=== PATIENT | female | born 1960 | race Caucasian/White ===

== ENCOUNTER 2022-07-30 07:50 | Outpatient (CLI) | payer OTHER, SELFPAY ==
--- NOTE | 2022-07-30 09:24 | ECG_ITS ---
Measurements Intervals [place] Rate: 59 P: 28 KS: 166 QRS: 13 QRSD: 83 T: 21 QT: 408 QTc: 407 Interpretive Statements SINUS BRADYCARDIA BORDERLINE T WAVE ABNORMALITY- ANTERIOR LEADS BASELINE ARTIFACT- I, II, III, AVR, AVL, AVF BORDERLINE ECG NO PREVIOUS ECG AVAILABLE FOR COMPARISON Electronically Signed On 07-30-2022 10:02:48 CDT by Patel Garnica D.O.
[2022-07-30 09:48] LABS: Basophils Percent Auto 0.2 % (0.2-1.2); Eosinophils Absolute Auto 0.1 K/mm3 (0-0.3); Eosinophils Percent Auto 1.5 % (0-4.4); Hematocrit 42.2 % (37.0-47.0); Hemoglobin 14.1 g/dL (12.0-15.0); Immature Granulocyte Absolute 0.01 K/mm3 (0.00-0.031); Immature Granulocyte Percent A 0.2 % (0-0.5); Lymphocytes Absolute Auto 1.28 K/mm3 (0.9-3.2); Lymphocytes Percent Auto 21.6 % (18.3-44.2); Mean Corpuscular HGB Conc 33.4 g/dl (32-36); Mean Corpuscular Hemoglobin 30.7 pg (26-34); Mean Corpuscular Volume 91.7 fl (80-100); Mean Platelet Volume 10.7 fl (7.4-10.4); Monocytes Absolute Auto 0.6 K/mm3 (0.1-0.6); Monocytes Percent Auto 10.3 % (2.6-8.5); Neutrophils Absolute Auto 3.9 K/mm3 (1.3-6.7); Neutrophils Percent Auto 66.2 % (45.5-73.1); Platelet Count Result 263 k/mm3 (150-375); Red Cell Distribution Width 13.7 % (11.5-14.5); White Blood Count 5.9 K/mm3 (4.5-10.0)
[2022-07-30 09:57] LABS: Alanine Aminotransferase 32 U/L (6-35); Albumin Level 4.5 g/dL (3.5-5.1); Alkaline Phosphatase 69 U/L (38-126); Anion Gap 7 mmol/L (8-16); Aspartate Amino Transferase 33 U/L (14-36); Bilirubin,Total 0.5 mg/dL (0.2-1.3); Blood Urea Nitrogen 16 mg/dL (7-17); Carbon Dioxide 28 mmol/L (22-30); Chloride 105 mmol/L (98-107); Estimated Glomerular Filt Rate > 60; Glucose 102 mg/dL (65-110); Potassium 4.6 mmol/L (3.4-5.0); Sodium 140 mmol/L (137-145)
[2022-07-30 10:00] LABS: Prothrombin Time 13.1 Seconds (11.1-14.7)
[2022-07-30 10:01] LABS: Partial Thromboplastin Time 24.4 SECONDS (22.3-36.8)
== END 2022-07-30 07:51 | disposition home or self-care (01) ==
PROVIDERS: Visit Provider Urology
DX: Z01.812 Encounter for preprocedural laboratory examination (principal); Z01.810 Encounter for preprocedural cardiovascular examination; N81.4 Uterovaginal prolapse, unspecified; R00.1 Bradycardia, unspecified
CPT/HCPCS: 36415; 80053; 85025; 85610; 85730; 86850; 86900; 86901; 93005

== ENCOUNTER 2022-08-10 00:50 | Day surgery (SDC) | payer OTHER, SELFPAY ==
[2022-07-30 08:53] VITALS: BMI 35.0
[2022-07-30 08:54] VITALS: BP 155/79; PULSE 67; RESP 18; TEMP 36.8; O2SAT 99
--- NOTE | 2022-07-30 09:02 | PC.NURSE ---
Addendum entered by Sheeba Gregg RN 07/30/22 09:10: LAST DOSE OF ALL VITAMINS/SUPPLEMENT 08/02/22 Original Note: Report to the Outpatient Waiting Room, entrance under the green pavilion located off [facility], at time ___0600____ on date _08/10/22 . Planned Procedure Time: 0730 . Time changes happen often and if your time is changed the preop area will call you the afternoon before. - You and your visitor will be asked to self-screen and do not enter if you have any COVID symptoms. - A mask is optional within the hospital at this time. Patients may have clear liquids (water, carbonated beverages, clear teas, apple juice) until 3 hours prior to surgery with a maximum of 20 ounces. - No food from midnight until time of surgery - Infants may have breast milk until 4 hours before surgery, formula 6 hours prior to surgery. - Children will be allowed to drink immediately following surgery. If applicable, please bring a bottle or sippy cup to assist with drinking. Juice, water, soda, and popsicles are readily available. For infants on formula, please bring formula the day of surgery. Pacifiers are allowed. Take the following medications with a SIP of water the morning of surgery: ____EYE DROPS, DO NOT STOP ANY OF YOUR OTHER PRESCRIPTION MEDICATIONS PRIOR TO SURGERY ?EXCEPT THE FOLLOWING Medications to discontinue per physician ____PT STATES LAST DOSE OF METHOTREXATE 07/11/[address] HEWITT . ALEVE PER DR HEWITT PT STATES HOLD ALL VITAMINS/SUPPLEMENTS 7 DAYS PRE OP PER DR HEWITT. LAST DOSE 08/06/22 Please no make-up, nail macedonian, hairspray, perfume, deodorant, or body powder the day of surgery. No jewelry (including any body piercings) or valuables the day of surgery, leave them at home. Please take a shower or bath the night before, or the morning of, surgery with an antibacterial soap. Wear comfortable, loose fitting clothing. Children are encouraged to wear pajamas. - Jewelry must be removed prior to entering the operating room. Rings and piercings that are not removed may be cut off. - The hospital will not accept responsibility for valuables. - Please leave all valuables, including medications, at home the day of surgery. If you are going home after surgery, a licensed diesel truck driver must drive you home. - NO public transportation without another adult if you receive anesthesia. - We recommend that an adult stay with you for 24 hours following discharge. - We also recommend that you do not drive, make important decision, drink alcoholic beverages, or take any drugs that were not prescribed by your health care provider for at least 24 hours after your discharge time. For Pediatric surgeries, we recommend two adults accompany the child home. Follow any additional instructions given to you from your surgeon. If you or anyone in your household have experienced Covid symptoms in the past week, please notify your surgeon or the nurse liaison at the phone number below for possible testing. VERBAL AND WRITTEN instructions given to _PATIENT AND SPOUSE RALPH and asked if any additional questions and then verbalized understanding. Patient advised to call surgeon office or pre surgery nurse liaison [phone] if any additional questions.
--- NOTE | 2022-08-09 16:30 | PM.IMHP ---
H&P: HPI History of Present Illness Date/Time: 08/09/22 16:30 Chief Complaint: POP Narrative: uterine prolapse. No norman Review of Systems Review of Systems: All systems reviewed & are unremarkable except as noted in HPI and below PMFSH Social History Social History Smoking status: Never smoker Living arrangements: with family Spiritual care concerns: No Meds Home Medications and Allergies Home Medications Medication Instructions Recorded Confirmed Type betamethasone, augmented 0.05 % 0.05 applic topical BID 07/30/22 07/30/22 History topical ointment calcium polycarbophil 625 mg 1,250 mg PO BID 07/30/22 07/30/22 History tablet (FiberCon) carboxymethylcellulose 0.5 1 drp ophthalmic (eye) TID 07/30/22 07/30/22 History %-glycerin 0.9 % (PF) eye drops (Refresh Relieva PF) cholecalciferol (vitamin D3) 125 125 mcg PO DAILY 07/30/22 07/30/22 History mcg (5,000 unit) tablet cyanocobalamin (vitamin B-12) 500 500 mcg PO DAILY 07/30/22 07/30/22 History mcg tablet famotidine 40 mg tablet 40 mg PO HS 07/30/22 07/30/22 History fluocinonide 0.05 % topical gel 1 applic topical PRN PRN SORES IN 07/30/22 07/30/22 History MOUTH folic acid 1 mg tablet 1 mg PO DAILY 07/30/22 07/30/22 History loratadine 10 mg tablet (Claritin) 10 mg PO DAILY 07/30/22 07/30/22 History methotrexate sodium (PF) 25 mg/mL 10 mg subcut WEEKLY SJOGREN'S 07/30/22 07/30/22 History injection solution montelukast 10 mg tablet 10 mg PO HS 07/30/22 07/30/22 History naproxen sodium 220 mg capsule 220 mg PO BID PRN Pain 07/30/22 07/30/22 History (Aleve) omeprazole 20 mg capsule,delayed 20 mg PO DAILY 07/30/22 07/30/22 History release potassium chloride 20 mEq 20 meq PO DAILY 07/30/22 07/30/22 History tablet,extended release(part/cryst) vitamin E 670 mg (1,000 unit) 670 mg PO DAILY 07/30/22 07/30/22 History capsule vitamins-lipotropics 200 mg-100 mg 3 tablet PO QPM 07/30/22 07/30/22 History tablet (Lipo-Flavonoid Plus) Allergies Allergy/AdvReac Type Severity Reaction Status Date / Time Sulfa (Sulfonamide Allergy Hives Verified 07/30/22 08:12 Antibiotics) amitriptyline AdvReac Severe Hives Verified 07/30/22 08:38 chloroquine AdvReac Other Verified 07/30/22 08:15 latex AdvReac Hives Verified 07/30/22 08:16 quaternium AdvReac Unknown Verified 07/30/22 08:13 Exam Narrative: apex at +1 Assessment and Plan Assessment and plan (1) Uterine prolapse: Code(s): N81.4 - Uterovaginal prolapse, unspecified Status: Acute Assessment and Plan: Sacral Colpopexy
[2022-08-10] VITALS (12 sets, daily range): BP systolic 108–157; BP diastolic 46–97; PULSE 68–82; RESP 13–22; TEMP 36.1–36.3; O2SAT 93–100
[2022-08-10] MEDS: ACETAMINOPHEN 500 MG TABLET 1000 MG PO (06:23)
[2022-08-10] MEDS: LACTATED RINGERS 1,000 ML 30 ML IV CONT ×2 (06:35→10:12)
[2022-08-10] MEDS: KETOROLAC 15 MG/ML VIAL (*BKC) IV PUSH (07:05)
--- NOTE | 2022-08-10 07:08 | WPDANESEPPF ---
Anes - Initial Pre Proc Eval Procedure: Operation Date: 08/10/22 07:30 Proposed Procedures p Robotic Sacrocolpopexy and Urethral Sling - Joseph Mark MD s Robotic Assisted Supracervical Hysterectomy with Bilateral Salpingo-oophorectomy - Rosetta ZenTapan Pinon DO Date/Time: 08/10/22 07:08 Surgeon: Joseph Mark MD Pre Op Diagnosis: incomp uterovag prolapse Patient Data Age: 62 Gender: F Height: 1.57 m Weight: 86.9 kg Last Vital Signs Temp 98.2 F 07/30/22 08:54 Pulse 67 07/30/22 08:54 Resp 18 07/30/22 08:54 BP 155/79 H 07/30/22 08:54 Pulse Ox 99 07/30/22 08:54 O2 Del Method Room Air 07/30/22 08:54 Allergies Allergy/AdvReac Type Severity Reaction Status Date / Time Sulfa (Sulfonamide Allergy Hives Verified 08/10/22 06:11 Antibiotics) amitriptyline AdvReac Severe Hives Verified 08/10/22 06:11 chloroquine AdvReac Other Verified 08/10/22 06:11 latex AdvReac Hives Verified 08/10/22 06:11 quaternium AdvReac Unknown Verified 08/10/22 06:11 Home Medications Medication Instructions Recorded Confirmed Type betamethasone, augmented 0.05 % 0.05 applic topical BID 07/30/22 08/10/22 History topical ointment calcium polycarbophil 625 mg 1,250 mg PO BID 07/30/22 08/10/22 History tablet (FiberCon) carboxymethylcellulose 0.5 1 drp ophthalmic (eye) TID 07/30/22 08/10/22 History %-glycerin 0.9 % (PF) eye drops (Refresh Relieva PF) cholecalciferol (vitamin D3) 125 125 mcg PO DAILY 07/30/22 08/10/22 History mcg (5,000 unit) tablet cyanocobalamin (vitamin B-12) 500 500 mcg PO DAILY 07/30/22 08/10/22 History mcg tablet famotidine 40 mg tablet 40 mg PO HS 07/30/22 08/10/22 History fluocinonide 0.05 % topical gel 1 applic topical PRN PRN SORES IN 07/30/22 07/30/22 History MOUTH folic acid 1 mg tablet 1 mg PO DAILY 07/30/22 08/10/22 History loratadine 10 mg tablet (Claritin) 10 mg PO DAILY 07/30/22 08/10/22 History methotrexate sodium (PF) 25 mg/mL 10 mg subcut WEEKLY SJOGREN'S 07/30/22 08/10/22 History injection solution montelukast 10 mg tablet 10 mg PO HS 07/30/22 08/10/22 History naproxen sodium 220 mg capsule 220 mg PO BID PRN Pain 07/30/22 08/10/22 History (Aleve) omeprazole 20 mg capsule,delayed 20 mg PO DAILY 07/30/22 08/10/22 History release potassium chloride 20 mEq 20 meq PO DAILY 07/30/22 08/10/22 History tablet,extended release(part/cryst) vitamin E 670 mg (1,000 unit) 670 mg PO DAILY 07/30/22 08/10/22 History capsule vitamins-lipotropics 200 mg-100 mg 3 tablet PO QPM 07/30/22 08/10/22 History tablet (Lipo-Flavonoid Plus) Patient hx anesthesia problems: none Family hx anesthesia problems: none Results Review: All pre-operative results and documents have been reviewed as part of the pre-operative evaluation. [facility] Social History Social History Smoking status: Never smoker Living arrangements: with family Spiritual care concerns: No Anes - Eval Final PreProcedure Day of Procedure 08/10/22 07:08 Patient weight: obese Heart: regular rate and rhythm Lungs: clear to auscultation Airway: Mallampati scale class II Neurological: alert and oriented Last oral intake: >/= 8 hours ASA classification: II Emergent: no Anesthetic plan: proceed Anesthesia type and monitoring: general ETT and standard monitoring Results Review: All pre-operative results and documents have been reviewed as part of the pre-operative evaluation. Informed Consent: The patient's anesthetic plan and its attendant risks and benefits were discussed with the patient/family/POA. Questions were solicited and answers provided to the satisfaction of the patient/family/POA.
--- NOTE | 2022-08-10 07:15 | WPDHPUPDATE1 ---
History and Physical Update Update Date/Time: 08/10/22 07:15 History and Physical has been reviewed, including an updated exam of the patient. There are NO changes in the patient's condition. Risks, benefits, and alternatives have been discussed and questions answered. Patient agrees to proceed with procedure.
--- NOTE | 2022-08-10 07:21 | WPDHPUPDATE1 ---
History and Physical Update Update Date/Time: 08/10/22 07:21 History and Physical has been reviewed, including an updated exam of the patient. There are NO changes in the patient's condition. Risks, benefits, and alternatives have been discussed and questions answered. Patient agrees to proceed with procedure.
--- NOTE | 2022-08-10 07:21 | PM.IMHP ---
H&P: HPI History of Present Illness Date/Time: 08/10/22 07:21 Chief Complaint: I'm here for my surgery Narrative: Chio presents for robotic assisted supracervical hysterectomy, bilateral salpingo-oophorectomy and sacralcolpopexy with Dr. Mark for pelvic organ prolapse. Review of Systems Review of Systems: All systems reviewed & are unremarkable except as noted in HPI and below PMFSH Social History Social History Smoking status: Never smoker Living arrangements: with family Spiritual care concerns: No Meds Home Medications and Allergies Home Medications Medication Instructions Recorded Confirmed Type betamethasone, augmented 0.05 % 0.05 applic topical BID 07/30/22 08/10/22 History topical ointment calcium polycarbophil 625 mg 1,250 mg PO BID 07/30/22 08/10/22 History tablet (FiberCon) carboxymethylcellulose 0.5 1 drp ophthalmic (eye) TID 07/30/22 08/10/22 History %-glycerin 0.9 % (PF) eye drops (Refresh Relieva PF) cholecalciferol (vitamin D3) 125 125 mcg PO DAILY 07/30/22 08/10/22 History mcg (5,000 unit) tablet cyanocobalamin (vitamin B-12) 500 500 mcg PO DAILY 07/30/22 08/10/22 History mcg tablet famotidine 40 mg tablet 40 mg PO HS 07/30/22 08/10/22 History fluocinonide 0.05 % topical gel 1 applic topical PRN PRN SORES IN 07/30/22 07/30/22 History MOUTH folic acid 1 mg tablet 1 mg PO DAILY 07/30/22 08/10/22 History loratadine 10 mg tablet (Claritin) 10 mg PO DAILY 07/30/22 08/10/22 History methotrexate sodium (PF) 25 mg/mL 10 mg subcut WEEKLY SJOGREN'S 07/30/22 08/10/22 History injection solution montelukast 10 mg tablet 10 mg PO HS 07/30/22 08/10/22 History naproxen sodium 220 mg capsule 220 mg PO BID PRN Pain 07/30/22 08/10/22 History (Aleve) omeprazole 20 mg capsule,delayed 20 mg PO DAILY 07/30/22 08/10/22 History release potassium chloride 20 mEq 20 meq PO DAILY 07/30/22 08/10/22 History tablet,extended release(part/cryst) vitamin E 670 mg (1,000 unit) 670 mg PO DAILY 07/30/22 08/10/22 History capsule vitamins-lipotropics 200 mg-100 mg 3 tablet PO QPM 07/30/22 08/10/22 History tablet (Lipo-Flavonoid Plus) Allergies Allergy/AdvReac Type Severity Reaction Status Date / Time amitriptyline Allergy Severe Hives Verified 08/10/22 07:12 latex Allergy Hives Verified 08/10/22 07:12 Sulfa (Sulfonamide Allergy Hives Verified 08/10/22 06:11 Antibiotics) chloroquine AdvReac Other Verified 08/10/22 06:11 quaternium AdvReac Unknown Verified 08/10/22 06:11 Vital Signs Vital Signs - 24 hr 08/10/22 07:12 Temperature 36.1 C L Pulse Rate 73 Respiratory Rate 16 Blood Pressure 157/76 H Pulse Oximetry 99 Oxygen Delivery Room Air Exam Const: General: comfortable and no acute distress Resp: Effort & Inspection: normal respiratory effort Auscultation: clear to auscultation bilaterally Cardio: Rate: regular rate Rhythm: regular rhythm GI: GI Palp: Yes Soft to palpation Auscultation: normal bowel sounds Skin: General skin exam: normal color and no rashes or lesions noted Neuro: General: gait normal Speech: normal speech Motor exam (neuro): 5/5 motor strength present throughout Psych: Mental Status: mental status grossly normal Assessment and Plan Assessment and plan (1) Uterine prolapse: Code(s): N81.4 - Uterovaginal prolapse, unspecified Status: Acute Plan Robotic assisted supracervical hysterectomy, bilateral salpingo-oophorectomy, sacralcolpopexy.
[2022-08-10] MEDS: metroNIDAZOLE 500 MG/ISO 100ML 500 MG/100 ML BAG 100 MG IVPB (07:29)
[2022-08-10] MEDS: ceFAZolin 2 GM/D5W 50 ML 2 GM/50 ML BAG IVPB (07:42)
--- NOTE | 2022-08-10 08:33 | W.PM.PROC2 ---
Procedure Note - Detailed Date of Procedure 08/10/22 Pre-op Diagnosis Uterovaginal prolapse Post-op Diagnosis Same Procedure Performed Robotic assisted supracervical hysterectomy, bilateral salpingo-oophorectomy Surgeon Rosetta Pinon DO [employer] Furnace Installer Juliana Anesthesia General Indications Uterovaginal prolapse Findings Normal appearing vulva and vaginal canal. Small cervix. Internally, the bowels and pelvic organs were unremarkable. Description of Procedure Patient was taken to the operating room where she was placed under general anesthesia. She was prepped and draped in the normal sterile fashion in a dorsal lithotomy position. A Boggs catheter was placed. Robotic access was obtained by Dr. Mark, please see his operative note. Once it was seated at the console, survey of the pelvis revealed the above-mentioned findings. Starting on the right side the peritoneum above the IP ligament was grasped and was gently opened using the scissors. Insufflation was allowed to enter the retroperitoneum. IP ligament was skeletonized and was cauterized and transected. Dissection was carried up through the peritoneum and the round ligament was cauterized and transected. The 2 leaves of the broad ligament were opened and the uterine vessels were skeletonized. The bladder flap was created and the vessels were cauterized and transected. The procedure was repeated in identical fashion on the left-hand side. The bladder flap was completed and the posterior peritoneum was taken down as well. The supracervical hysterectomy was completed with transection across the lower uterine segment and at the level of the internal os. All pedicles were reinspected and found to be hemostatic. Specimen was left in the pelvis for retrieval later by Dr. Mark. When I left the OR, the patient was in stable condition. Estimated Blood Loss 5 Pathology Yes Complications No immediate complications Condition Stable Disposition PACU
--- NOTE | 2022-08-10 10:05 | W.PM.PROC2 ---
Procedure Note - Detailed Date of Procedure 08/10/22 Pre-op Diagnosis incomp uterovag prolapse Post-op Diagnosis Same Procedure Performed Robotic assisted laparoscopic sacral colpopexy Surgeon Joseph Mark MD Anesthesia General Indications This is a woman with uterine prolapse without stress incontinence. She desires surgical correction. She is here for the above. She understands risks of bleeding, infection, diskitis, damage to surrounding organs, bowel injury, bowel obstruction, mesh related complications including exposure and extrusion, postoperative voiding dysfunction including incontinence and retention, need for ancillary procedures, dyspareunia, recurrence of prolapse, and other perioperative intraoperative postoperative complications. She agrees to proceed. Findings See below Description of Procedure She was correctly identified. Informed consent obtained. She from the operating room. She was given general anesthesia. She was given appropriate perioperative antibiotics. She was placed a low lithotomy position. Pressure points were padded. A time-out performed. I marked out the skin 3 fingerbreadths cephalad to the umbilicus. I anesthetized the skin. I incised the skin. I dissected down to the fascia. I grasped the fascia with Mayela clamps. I entered the fascia sharply in a Schaefer type technique. I placed sutures for later fascial closure. I placed a midline trocar. I examined the abdomen. There is no sign of any injury. Under direct vision I placed 2 additional trocars in the right upper quadrant and 2 additional trocars the left upper quadrant. She was placed in steep Trendelenburg. The robot was docked. Her industrial relations counselor completed their portion of the procedure. Please see that operative report for details. I then sat at the console. The Sizer in the vagina created plane on the anterior and posterior vaginal wall. I took great care not to injure the vagina, bladder, or rectum. I introduced the mesh into the abdomen. I sewed the anterior leaflet of mesh on the anterior vaginal wall. I sewed the posterior leaflet of mesh on the posterior vaginal wall. This was done with several sutures of 2 0 [place]. I reflected the colon laterally. I opened the posterior peritoneum over the sacral promontory. I carried this into the cul-de-sac. I freed up the edges for later retroperitonealization. I located the anterior longitudinal ligament the sacrum. I cleaned off all fatty tissues. I then tensioned my mesh appropriately. I did a vaginal exam the bedside. I assured prolapse reduction without undue tension. I then sewed the proximal leaflet of mesh onto the anterior longitudinal ligament of the sacrum with several sutures of 2 0 [place]. I then used a 2 0 Monocryl to completely and meticulously retroperitonealized all mesh. I allowed the colon to go back to its normal anatomic location. There is no sign of any impingement. The specimen was then removed. All ports removed. Fascia was tied down. Additional sutures were placed to fully close the fascia. Skin was closed with Monocryl and surgical glue. I then performed cystoscopy. There was no tumors or surgical artifact. Both ureters were seen to excrete clear yellow urine. Bilateral guidewires were passed up the ureters to document patency. there is no surgical artifact in the bladder or urethra. I She was awakened and transferred to PACU in stable condition. Implants Sacral colpopexy mesh Estimated Blood Loss 5 Packing No Pathology None sent Complications No immediate complications Condition Stable Disposition PACU
[2022-08-10] MEDS: oxyCODONE HCL (*CRX) 5 MG TAB IR PO (12:10)
== END 2022-08-10 14:07 | disposition home or self-care (01) ==
PROVIDERS: Obstetrics & Gynecology Gynecologic Oncology; Visit Provider Urology
PROC: (CPT 57425; principal; 2022-08-10 07:30)
PROC: 0UT94ZZ Resection of Uterus, Percutaneous Endoscopic Approach (ICD-10-PCS; CPT 57425; 2022-08-10 07:30)
DX: C54.1 Malignant neoplasm of endometrium (principal); N81.2 Incomplete uterovaginal prolapse; D25.1 Intramural leiomyoma of uterus; N80.03 Adenomyosis of the uterus; E66.9 Obesity, unspecified; Z68.33 Body mass index [BMI] 33.0-33.9, adult
CPT/HCPCS: 57425; 58542; S2900 ×2; 36415; 80053; 85025; 85610; 85730; 86850; 86900; 86901; 88307; 93005; A9270; C1781; C9290; J0690; J1100; J1170; J1885; J2250; J2405; J2704; J2710; J3010; J7030; J7120